=== PATIENT | male | born 1945 | race Caucasian/White ===

== ENCOUNTER 2016-08-18 20:37 | Emergency (ER) | payer MEDICARE, OTHER ==
[~2016-08-18 20:37] MED LIST: AMITIZA24 MCG PO; DILTIAZEM ER360 MG PO; DULCOLAX5 MG PO; ENSURE LIQUID237 ML PO; LOPRESSOR 25 MG25 MG PO; NITROSTAT 0.40.4 MG SL; PERCOCET 10-321 EACH PO; PROTONIX40 MG PO; ZESTRIL20 MG PO
== END 2016-08-19 | disposition left against medical advice (07) ==
LOC: ER1 20:37
DX: Z53.21 Procedure and treatment not carried out due to patient leaving prior to being seen by health care provider (principal)

== ENCOUNTER 2016-08-21 17:15 | Emergency (ER) | payer MEDICARE, OTHER | END 2016-08-22 11:15 | disposition left against medical advice (07) | LOC: ER1 17:15 | DX: Z53.21 Procedure and treatment not carried out due to patient leaving prior to being seen by health care provider (principal) | CPT/HCPCS: 99283 ==

== ENCOUNTER 2016-08-23 14:33 | Emergency (ER) | payer MEDICARE, OTHER | END 2016-08-23 18:29 | disposition home or self-care (01) | LOC: ER1 14:33 | DX: S00.12XA Contusion of left eyelid and periocular area, initial encounter (principal); I10 Essential (primary) hypertension; W01.0XXA Fall on same level from slipping, tripping and stumbling without subsequent striking against object, initial encounter; Y92.009 Unspecified place in unspecified non-institutional (private) residence as the place of occurrence of the external cause; Z88.2 Allergy status to sulfonamides; Z88.8 Allergy status to other drugs, medicaments and biological substances | CPT/HCPCS: 70450; 71010; 72125; 99284 ==

== ENCOUNTER → 2016-12-13 | Outpatient (CLI) | payer MEDICARE, OTHER | LOC: RT 12:00 | DX: R55 Syncope and collapse (principal); Z95.0 Presence of cardiac pacemaker ==

== ENCOUNTER → 2022-01-16 | Outpatient (CLI) | payer MEDICARE, OTHER ==
[~2022-01-16] MED LIST changes: +CRESTOR 10 MG T10 MG PO; +FLOMAX0.4 MG PO; -LOPRESSOR 25 MG25 MG PO; +METOPROLOL SUCC50 MG PO; +NEURONTIN300 MG PO; +TOPROL XL 50 MG50 MG PO
== END ==
LOC: HEART 5 12-26 08:30
DX: I48.91 Unspecified atrial fibrillation (principal); I49.5 Sick sinus syndrome; I08.2 Rheumatic disorders of both aortic and tricuspid valves; Z95.0 Presence of cardiac pacemaker
CPT/HCPCS: 93306